=== PATIENT | female | born 1955 | race Caucasian/White ===

== ENCOUNTER 2022-11-29 13:27 | Outpatient (REF) | payer OTHER, SELFPAY ==
[2022-11-29 15:35] LABS: Vitamin B12 798 pg/mL (200-900)
[2022-11-30 08:56] LABS: Syphilis Screen Nonreactive (Nonreactive)
== END 2022-11-29 13:28 | disposition home or self-care (01) ==
LOC: HO.LAB 13:27
PROVIDERS: PCP Physician Assistant; Visit Provider Psychiatry & Neurology Neurology
DX: G31.84 Mild cognitive impairment of uncertain or unknown etiology (principal)
CPT/HCPCS: 36415; 82607; 86780

== ENCOUNTER 2024-06-15 14:10 | Outpatient (AMB) | payer OTHER, SELFPAY ==
--- NOTE | 2024-06-15 14:20 | A.OFFVIS_ITS ---
Vital Signs 06/15/24 14:32 Weight 180 lb BP 120/59 L Blood Pressure Location Rt brachial Position Standing Pulse 93 Intake Visit Reasons: hemorrhoids Intake Note: This patient presents for an assessment for hemorrhoids. Patient c/o; reports no rectal bleeding, reports pain, reports some days constipated and then has loose stools. Vp Product Management Required: No Compliance Quality Performance Analyst: Compliance Quality Performance Analyst offered & declined Accompanied by: Self / Same As Patient Allergies No Known Allergies Allergy (Verified 06/15/24 14:33) Medication List - Last Reconciled 06/15/24 by Luis Alberto Ernandez MD cetirizine 10 mg PO DAILY dapagliflozin propanediol (Farxiga) 10 mg PO BEDTIME fluticasone propionate 50 mcg/actuation 2 sprays intranasal DAILY ibuprofen 800 mg PO Q8H PRN insulin degludec (Tresiba FlexTouch U-100 insulin) 40 - 50 units subcut BEDTIME lisinopril 10 mg PO DAILY metformin 1,000 mg PO BID pravastatin 20 mg PO DAILY tramadol 50 mg PO TID PRN valacyclovir 500 mg PO BID HPI HPI hemorrhoids: Details: [age] year female referred for hemorrhoid issues. She says she has had hemorrhoids for almost 20 years now. She describes some issues with prolapse and passage of bright blood per rectum seen with wiping. She denies being constipated. She describes occasional problems with swelling and pain with the hemorrhoids. She denies incontinence. She says that she knows she has hemorrhoids externally as she says she feels this all the time. [facility] Medical History (Updated 06/15/24 @ 14:42 by Luis Alberto Ernandez MD) Hemorrhoids that prolapse with straining and require manual replacement back inside anal canal Surgical History (Updated 06/15/24 @ 14:35 by WENDI Hoffmann) Hx of appendectomy History of cholecystectomy Family History (Updated 06/15/24 @ 14:36 by WENDI Hoffmann) Mother History of lumpectomy Social History Alcohol intake: never Patient Tobacco Use Status: Former Tobacco user Review of Systems Const Denies chills and Denies fever(s) Card Denies chest pain, Denies dyspnea and Denies dyspnea on exertion Resp Denies cough, Denies dyspnea and Denies dyspnea on exertion GI Denies hematochezia and Denies change in bowel habits Denies hematuria Musc Denies back pain and Denies limited range of motion Neuro Denies focal weakness and Denies convulsions Psych Denies depression and Denies mood swings Physical Exam Vital Signs: Last Vital Signs Pulse 93 06/15/24 14:32 BP 120/59 L 06/15/24 14:32 Const General: comfortable and no acute distress Orientation/consciousness: patient oriented x3 Neck Neck: Yes no lymphadenopathy Resp Auscultation: clear to auscultation bilaterally Cardio Rhythm: regular rhythm GI Other: Rectal exam shows external hemorrhoids on both the left and right side, bulky, along with some prolapse of the internal component Palpation (GI): Soft to palpation, nontender and no guarding Neuro General: patient oriented x3 Office Procedures Anoscopy She was in brock-knife position. The anoscope was gently inserted. A full examination of the anal canal was done. She did have large hemorrhoidal columns, internal external on both the left and right side with prolapse of the internal component. There were no lesions seen. There was no fissure or ulceration. There was no induration on digital exam. There was no bleeding. [id number] Assessment & Plan Assessment & Plan (1) Hemorrhoids that prolapse with straining and require manual replacement back inside anal canal: Code(s): K64.2 - Third degree hemorrhoids Category: Medical Plan: She does have a mix of internal and external hemorrhoids, bulky with note of some prolapse that once in a while requires some manual reduction. She describes some blood on wiping on and off. I explained the option of hemorrhoidectomy. I discussed the technique of this procedure. I reviewed the risks including but not limited to bleeding, infections, postop pain, as well as the benefits and alternatives. I also reviewed with her what to expect postoperatively. At this time, she does not want to proceed with surgery. She says that although she has symptoms, she does not feel that these are severe enough to warrant surgery I did tell her that she is welcome to come back to the office any time she wants this re-evaluated. I also recommended for her to take some fiber supplements. Coding Level of Care Code New Pt Level 3 (05504) Diagnoses Hemorrhoids that prolapse with straining and require manual replacement back inside anal canal K64.2 CPT Codes Details - CPT: 76143-[id number] ([id number])
[2024-06-15 14:32] VITALS: BP 120/59; PULSE 93
== END 2024-06-15 14:56 | disposition home or self-care (01) ==
PROVIDERS: PCP Physician Assistant; Visit Provider Surgery
DX: K64.2 Third degree hemorrhoids (principal)
CPT/HCPCS: 46600; 99203

== ENCOUNTER → 2024-06-15 14:10 | Outpatient (BNVA) | payer OTHER, SELFPAY | PROVIDERS: PCP Physician Assistant; Visit Provider Surgery | DX: K64.2 Third degree hemorrhoids (principal) | CPT/HCPCS: 46600; 99202 ==

== ENCOUNTER 2024-07-08 13:21 | Outpatient (AMB) | payer OTHER, SELFPAY ==
[2024-07-08 13:25] VITALS: BP 124/62; PULSE 82; O2SAT 96; BMI 33.0
--- NOTE | 2024-07-08 13:25 | A.OFFVIS_ITS ---
Vital Signs 07/08/24 13:25 Height 5 ft 3 in Weight 186 lb 4.65 oz BMI 33.0 BP 124/62 Blood Pressure Location Lt brachial Position Sitting Pulse 82 Pulse Source Pulse Oximeter Pulse Oximetry (%) 96 Oxygen Delivery Method Room Air Intake Visit Reasons: Obstructive sleep apnea Allergies No Known Allergies Allergy (Verified 07/08/24 14:00) Medication List - Last Reconciled 07/08/24 by Nhan James MD cetirizine 10 mg PO DAILY dapagliflozin propanediol (Farxiga) 10 mg PO BEDTIME fluticasone propionate 50 mcg/actuation 2 sprays intranasal DAILY ibuprofen 800 mg PO Q8H PRN insulin degludec (Tresiba FlexTouch U-100 insulin) 40 - 50 units subcut BEDTIME lisinopril 10 mg PO DAILY metformin 1,000 mg PO BID pravastatin 20 mg PO DAILY tramadol 50 mg PO TID PRN valacyclovir 500 mg PO BID Do you need a note to return to daycare/school/sports/work: No HPI HPI Obstructive sleep apnea: Details: 69 YEARS OLD FEMALE IS BEING SEEN FOR THE 1ST TIME BY ME , IN RELATION TO HER HISTORY OF OBSTRUCTIVE SLEEP APNEA. SHE DOES HAVE HISTORY OF ESTABLISH DIAGNOSIS OF OBSTRUCTIVE SLEEP APNEA, BY A SLEEP STUDY ABOUT 7 YEARS AGO DONE AT [facility] IN [place]. SHE DID HAVE OBSTRUCTIVE SLEEP APNEA AND WAS STARTED ON CPAP THERAPY. SHE TRY TO USE THE CPAP , BUT COULD NOT USE IT, DUE TO SOME CLAUSTROPHOBIC SYMPTOMS WHILE WEARING THE MASK. SHE HAD TO RETURN THE CPAP DEVICE AFTER A FEW MONTHS, DUE TO NONCOMPLIANCE. SHE USED TO HAVE LOT OF SNORING AT NIGHT WITH INTERRUPTED SLEEP AND DAYTIME SLEEPINESS. SHE HAS TRY TO LOSE WEIGHT. AND OVER THE PAST 5 OR 6 YEARS SHE HAS LOST ALMOST 50 TO 55 LBs OF WEIGHT. SHE TRIES TO SLEEP. IN LATERAL POSITION . AT PRESENT SHE DENIES HAVING EXCESSIVE DAYTIME SLEEPINESS. HER APPLICATION FOR LIFE INSURANCE WAS REFUSED, AND THE INSURANCE COMPANY WANTS HER TO BE CHECKED FOR OBSTRUCTIVE SLEEP APNEA. THIS IS WHY SHE HAS CO.ME TO SEE ME. SHE DENIES HAVING ANY CHRONIC RESPIRATORY PROBLEMS. SHE DOES HAVE PAST HISTORY, OF SMOKING FROM AGE 15 TO AGE, 38 . THIS MEANS THAT SHE QUIT SMOKING ABOUT 30 YEARS AGO. SHE IS HAVING ANNUAL CT SCAN FOR LUNG SCREENING, AND HAS BEEN TOLD THAT SHE HAS A FEW PULMONARY NODULES WHICH NEEDS TO BE WATCHED [facility] Medical History (Updated 07/08/24 @ 14:21 by Nhan James MD) CATHERINE (obstructive sleep apnea) Obesity (BMI 30-39.9) Hemorrhoids that prolapse with straining and require manual replacement back inside anal canal Surgical History Hx of appendectomy History of cholecystectomy Family History Mother History of lumpectomy Social History Alcohol intake: never Patient Tobacco Use Status: Former Tobacco user Review of Systems Const All systems reviewed & are unremarkable except as noted in HPI and below Eyes Reports no additional complaints ENT Reports no additional complaints Card Denies chest pain, Denies irregular heart rhythm and Denies leg edema GI Reports no additional complaints Reports no additional complaints Musc Reports no additional complaints Skin/Breast Reports system reviewed and no additional complaints, except as documented Neuro Reports no additional complaints Psych Reports no additional complaints Endo Reports no additional complaints Aller/Immun Reports no additional complaints Physical Exam Vital Signs: Last Vital Signs Pulse 82 07/08/24 13:25 BP 124/62 07/08/24 13:25 Pulse Ox 96 07/08/24 13:25 Oxygen Delivery Method Room Air 07/08/24 13:25 BMI result Body Mass Index 33.0 Const General: healthy appearing, comfortable, no acute distress, alert and awake Orientation/consciousness: patient oriented x3 HEENT Head: Yes normal to inspection and Yes other ( NECK CIRCUMFERENCE 15 IN) General nose exam: No nasal polyps present and No nasal discharge present Face and sinus: Yes sinuses nontender Mouth: oropharynx abnormals ( OROPHARYNX IS SOMEWHAT NARROW, MALLAMPATI CLASS 3) Throat: Yes posterior oropharynx normal Eyes General: appearance normal, both eyes and all related structures Neck Neck: Yes normal visual inspection, Yes no lymphadenopathy, Yes trachea midline and Yes no JVD Thyroid: Thyroid normal Chest Chest palpation & inspection: normal inspection of the chest, normal palpation of entire chest wall and no tenderness Resp Effort & Inspection: normal respiratory effort Auscultation: clear to auscultation bilaterally, no crackles and no wheezes Cardio Palpation: normal PMI Rate: regular rate Rhythm: regular rhythm Heart sounds: no gallops and no murmurs Peripheral pulses: Peripheral pulses 2+ throughout GI Palpation (GI): Soft to palpation, nontender, No hepatosplenomegaly present and no masses Auscultation: normal bowel sounds Back/Spine/Pelvis Thoracic/Lumbar Spine: thoracic and lumbar spine normal to inspection Skin General skin exam: no rashes or lesions noted Neuro General: patient oriented x3 and no focal motor deficits Cranial nerves: Yes CN's II-XII intact bilaterally Extrem General: Yes normal to inspection, Yes no clubbing, cyanosis or edema and Yes no calf tenderness Psych Speech and movement: Normal speech and movement present Assessment & Plan Assessment & Plan (1) Obesity (BMI 30-39.9): Comment: PATIENT HAS HISTORY OF MORBID OBESITY, SHE HAS LOST WEIGHT GRADUALLY IN THE LAST 6-7 YEARS, BY ALMOST 50-55 LBs Code(s): E66.9 - Obesity, unspecified Category: Medical Plan: DISCUSSED WITH HER ABOUT DIET CONTROL AND DOING. PHYSICAL EXERCISES . SHE COULD STILL LOSE ABOUT 10-15 MORE LB. (2) CATHERINE (obstructive sleep apnea): Comment: SHE HAS A DEFINITE HISTORY OF OBSTRUCTIVE SLEEP APNEA WHICH PROBABLY COINCIDED WITH HER MORBID OBESITY BACK ABOUT 7 YEARS AGO. SHE WAS INTOLERANT. OF THE CPAP THERAPY. SO HAD TO RETURN THE CPAP DEVICE BECAUSE OF NONCOMPLIANCE. A LIFE INSURANCE FOR WHICH SHE HAS APPLIED REQUIRES THAT SHE HAS A SLEEP STUDY TO CONFIRM OR RULE OUT THE DIAGNOSIS OF SLEEP APNEA. Code(s): G47.33 - Obstructive sleep apnea (adult) (pediatric) Category: Medical Plan: DISCUSSED ABOUT H.ER ABOUT THE SLEEP STUDY . I THINK SHE NEEDS ONLY HOME-BASED SLEEP STUDY FOR SCREENING . THE MANAGEMENT WILL DEPEND UPON THE RESULTS. OF THE SLEEP STUDY Orders: Orders RT home sleep study Today E66.9 - Obesity, unspecified, G47.33 - Obstructive sleep apnea (adult) (pediatric) Coding Level of Care Code New Pt Level 3 (76600) Diagnoses Obesity (BMI 30-39.9) E66.9 CATHERINE (obstructive sleep apnea) G47.33
== END 2024-07-08 14:01 | disposition home or self-care (01) ==
PROVIDERS: PCP Physician Assistant; Visit Provider Internal Medicine
DX: E66.9 Obesity, unspecified (principal); G47.33 Obstructive sleep apnea (adult) (pediatric)
CPT/HCPCS: 99203

== ENCOUNTER → 2024-07-08 13:21 | Outpatient (BNVA) | payer OTHER, SELFPAY | PROVIDERS: PCP Physician Assistant; Visit Provider Internal Medicine | DX: G47.33 Obstructive sleep apnea (adult) (pediatric) (principal); E66.9 Obesity, unspecified | CPT/HCPCS: 99202 ==